=== PATIENT | female | born 1975 | race African-American/Black ===

== ENCOUNTER 2020-03-30 11:03 | Emergency (ER) | payer OTHER ==
[~2020-03-30] VITALS: Ht 157.5 cm; Wt 59.0 kg
[2020-03-30] MEDS ORDERED: ARIMIDEX 1 MG (11:13)
== END 2020-03-30 13:55 | disposition home or self-care (01) ==
LOC: ER 11:03
DX: S00.03XA Contusion of scalp, initial encounter (principal); S40.012A Contusion of left shoulder, initial encounter; M54.2 Cervicalgia; W18.09XA Striking against other object with subsequent fall, initial encounter; Y93.89 Activity, other specified; Y92.89 Other specified places as the place of occurrence of the external cause; Y99.8 Other external cause status

== ENCOUNTER 2021-10-19 17:02 | Emergency (ER) | payer OTHER ==
[~2021-10-19] VITALS: Ht 157.5 cm; Wt 58.5 kg
[~2021-10-19 17:02] MED LIST: ARIMIDEX 1 MG
== END 2021-10-19 19:34 | disposition home or self-care (01) ==
LOC: ER 17:02
DX: R51.9 Headache, unspecified (principal); Z11.52 Encounter for screening for COVID-19